=== PATIENT | male | born 1945 | race Caucasian/White ===

== ENCOUNTER → 2017-11-13 | Outpatient (REF) | payer MEDICARE | END | disposition home or self-care (01) | LOC: RT 13:33 | PROVIDERS: ATTEND Internal Medicine | DX: R05 Cough (principal); R06.00 Dyspnea, unspecified ==

== ENCOUNTER 2020-07-11 09:03 | Inpatient (IN) | payer MEDICARE, OTHER ==
[~2020-07-11] VITALS: Ht 188 cm; Wt 133.0 kg
--- NOTE | 2020-07-11 09:04 | NUR ---
TO ROOM FOR BEDSIDE TRIAGE
--- NOTE | 2020-07-11 09:10 | NUR ---
PT ASSISTED TO ROOM VIA W/C
[2020-07-11 10:06] LABS: HEMATOCRIT 38.9 % (39.0-50.0); HEMOGLOBIN 11.9 g/dl (14.0-18.0); IMMATURE GRANULOCYTES 0.6 % (0.0-5.0); MEAN CELL VOLUME 104.6 fL CALC (80.0-100.0); MEAN CORPUSCULAR HGB CONC 30.6 g/dL CAL (32.0-36.0); NEUT# 4.93 thou/uL (1.82-7.42); RED BLOOD COUNT 3.72 mill/uL (4.70-6.10); RED CELL DISTRI WIDTH 16.7 % (11.5-15.5)
[2020-07-11 10:23] LABS: ALBUMIN 3.8 g/dL (3.2-5.0); ALKALINE PHOSPHATASE 107 u/l (38-126); BILIRUBIN, TOTAL 0.7 mg/dL (0.0-1.4); BUN 22 mg/dL (8-23); BUN/CREATININE RATIO 20 (12-20 (CALC)); CARBON DIOXIDE 20 mmol/l (22-30); CHLORIDE 110 mmol/l (95-108); CREATININE 1.1 mg/dL (0.7-1.3); GFR > 60 ML/MIN (>=60 (CALC)); GFR FOR AFR.AMER. > 60 ML/MIN (>=60 (CALC)); LIPASE 74 u/l (23-300); SGOT/AST 26 u/l (19-48); SODIUM 138 mmol/l (137-146); TOTAL PROTEIN 7.6 g/dL (6.3-8.2)
--- NOTE | 2020-07-11 10:26 | NUR ---
PT RECIEVED ASPIRIN THAT WAS ORDERED AND PLAN OF CARE DISCUSSED. PT ARRIVED WITH SOB EARLIER STATING THAT IT IS CHRONIC B/C OF HIS COPD. THAT IT GOT WORSE TODAY. PT HAS LOW SPO2 UPON ARRIVAL THAT RANGED FROM 85-90%. PT WAS PLACED ON 3 L OF O2 AND IT BROUGHT O2 LEVELS TO 90-95%. MD WAS NOTIFED. TREATMENTS COMPLETED AND AWAITING FURTHER ORDERS
[2020-07-11 10:27] LABS: ANION GAP 13 (6-22 (CALC)); POTASSIUM 5.2 mmol/l (3.5-5.1)
[2020-07-11 10:35] LABS: MYOGLOBIN 54 ng/mL (0 - 121)
--- NOTE | 2020-07-11 11:18 | NUR ---
PT LEFT BY EMS TO [facility] FOR [facility]
[2020-07-11 11:28] LABS: URINE BILIRUBIN - DIPSTICK NEGATIVE (NEGATIVE); URINE BLOOD DIPSTICK MODERATE (NEGATIVE); URINE COLOR YELLOW; URINE GLUCOSE - DIPSTICK 100 mg/dL (NEGATIVE); URINE KETONE TRACE mg/dL (NEGATIVE); URINE LEUK ESTERASE NEGATIVE (NEGATIVE); URINE PH 5.5 (4.5-8.0); URINE PROTEIN - DIPSTICK >=300 mg/dL (NEG-TRACE); URINE SPECIFIC GRAVITY 1.025; URINE UROBILINOGEN - DIPSTICK 0.2 E.U./dL (0.2)
[2020-07-11 11:29] LABS: URINE NITRITE - DIPSTICK NEGATIVE (Negative)
[2020-07-11 11:42] LABS: URINE RBC 0-2 RBC/hpf (0-5); URINE SQUAMOUS EPITHELIAL CELL FEW EPI/hpf (0-FEW)
--- NOTE | 2020-07-11 12:48 | NUR ---
PT CONTINUES TO BE GONE TO CT IN [facility]
--- NOTE | 2020-07-11 15:04 | NUR ---
PT ARRIVED BY [facility] FROM [facility]. PT AOX4. DENIES ANY NEEDS. REQUESTED TO SIT IN CHAIR. PLAN OF CARE UPDATED
--- NOTE | 2020-07-11 16:20 | NUR ---
PT NOTIFIED OF PENDING ADMISSION, JUST WAITING ON ROOM #
--- NOTE | 2020-07-11 17:01 | NUR ---
GAVE REPORT TO OLEKSANDR
--- NOTE | 2020-07-11 17:10 | NUR ---
PT TRANPORTED TO MED SURG STABLE AND IN NO DISTRESS. CARE ASSUMED TO OLEKSANDR
[2020-07-11 17:16] VITALS: BP 192/88
--- NOTE | 2020-07-11 17:36 | NUR ---
PT ARRIVED VIA STRETCEHR WITH SPOUXE IN THE ROOM
--- NOTE | 2020-07-11 17:45 | NUR ---
ASSESSMENT IS COMPLETED: IV SITE IS FREE FROM REDNESS OR EDEMA. HR IS REG,PULSES ARE STRONG X4, ABD IS SOFT WITH ACTIV EBS. BREATH SOUNDS ARE CLEAR,BILATERALLY, TELE MONITOR IN PLACE.
[2020-07-11 19:00] VITALS: BP 166/89
--- NOTE | 2020-07-11 20:00 | NUR ---
PATIENT RESTING IN BED AT THIS TIME POSITIONED ON LEFT SIDE WITH EYES CLOSED. RESPS ARE EVEN AND UNLABORED. O2 VIA NASAL CANNULA IN PLACE AT 2LPM. SALINE LOCK TO RAC IS INTACT. TELE MONITOR IN PLACE-LAST READING WAS SR-75. CALL LIGHT IN REACH. WILL CONT TO MONITOR.
--- NOTE | 2020-07-11 21:30 | NUR ---
PATIENT RESTING IN BED AT THIS TIME WITH O2 VIA NASAL CANNULA IN PLACE. AWAKE ALERT AND ORIENTEDX3. PATIENT WITH NO COMPLAINTS AT THIS TIME. VOIDING QS CLEAR YELLOW URINE IN URINAL AT BEDSIDE. TELE MONITOR IN PLACE. SALINE LOCK TO RAC INTACT AND FLUSHES FREELY WITH GOOD BLOOD RETURN.ACCU-CHECK TONIGHT WAS 225. SAFETY PRECAUTIONS REINFORCED. CALL LIGHT IN REACH. WILL CONT TOO MONITOR.
[2020-07-12] VITALS: BP 154/65
--- NOTE | 2020-07-12 02:11 | NUR ---
PATIENT APPEARS SLEEPING AT THIS TIME WITH HOB ELEVATED O2 VIA NASAL CANNULA IN PLACE. EYES ARE CLOSED. RESPS ARE EVEN AND UNLABORED. TELE MONITOR IN PLACE. CALL LIGHT IN REACH. WILL CONT TO MONITOR.
[2020-07-12 04:00] VITALS: BP 167/76
--- NOTE | 2020-07-12 04:48 | NUR ---
PATIENT RESTING IN BED AT THIS TIME-APPEARS SLEEPING WITH O2 IN PLACE. RESPS ARE EVEN AND UNLABORED. TELE MONITOR IN PLACE. LAST READING WAS SR-74 WITH PVC'S. SALINE LOCK TO RAC INTACT. CALL LIGHT IN REACH. WILL CONT TO MONITOR.
[2020-07-12 06:20] LABS: HEMATOCRIT 39.7 % (39.0-50.0); HEMOGLOBIN 12.1 g/dl (14.0-18.0); MEAN CORPUSCULAR HGB CONC 30.5 g/dL CAL (32.0-36.0); RED BLOOD COUNT 3.78 mill/uL (4.70-6.10); RED CELL DISTRI WIDTH 16.4 % (11.5-15.5)
[2020-07-12 06:53] LABS: BUN 19 mg/dL (8-23); BUN/CREATININE RATIO 19 (12-20 (CALC)); CALCULATED LDLCHOLESTEROL 51 mg/dL (62-129 (CALC)); CARBON DIOXIDE 23 mmol/l (22-30); CHLORIDE 109 mmol/l (95-108); CHOLESTEROL HDL RATIO 2.1 (<4.4 (CALC)); GFR > 60 ML/MIN (>=60 (CALC)); GFR FOR AFR.AMER. > 60 ML/MIN (>=60 (CALC)); HDL CHOLESTEROL 55 mg/dL (>=40); SODIUM 139 mmol/l (137-146); TOTAL CHOLESTEROL 118 mg/dl (0-199); TOTAL TRIGLYCERIDES 56 mg/dl (30-149); VLDL CHOLESTROL 11 mg/dl (0-38 (CALC))
[2020-07-12 06:57] LABS: ANION GAP 12 (6-22 (CALC)); MAGNESIUM 1.8 mg/dL (1.6-2.3); POTASSIUM 5.3 mmol/l (3.5-5.1)
--- NOTE | 2020-07-12 07:00 | NUR ---
RECIEVED REPORT FROM KRISTIN MCCALL
[2020-07-12 07:47] VITALS: BP 190/84
--- NOTE | 2020-07-12 07:47 | NUR ---
PT RESTING IN SEMI FOWLERS POSITION. PT IS A/O X3. ASSESSMENT AND VITALS COMPLETED. BP 190/84, HR 83, O2 95% ON 3L NC. RESPIRATIONS ARE EVEN AND UNLABORED WITH NO DISTRESS NOTED. LUNG SOUNDS ARE CLEAR. HEART RHYTHM IS NORMAL WITH TELE IN PLACE, SR PER ER MONITORING. BOWEL SOUNDS ARE ACTIVE. #20G IN RAC FLUSHED, SITE APPEARS HEALTHY AND PATENT. DISCOLORATION NOTED TO BLE. PT DENIES OF ANY PAINS OR DISCOMFORTS AT THIS TIME. ALL SAFETY PRECAUTIONS ARE IN PLACE WITH CALL LIGHT IN REACH. ENCOURAGED PT TO CALL FOR ASSISTANCE. PT VERBLAIZED UNDERSTANDING. WILL CONTINUE TO MONITOR.
--- NOTE | 2020-07-12 07:50 | NUR ---
PT UNABLE TO REMEMBER MEDICATIONS. PT STATES HE HAS A MEDIATION LIST AT HOME. PHARMACY CONTACTED ABOUT CONSULT FOR MED REC. FADY,ANRP NOTIFIED OF .
[2020-07-12] MEDS ORDERED: ACETAMIN500 M2 PO (08:57)
[2020-07-12] MEDS ORDERED: LASIX 40 MG TAB40 MG PO (08:58)
[2020-07-12] MEDS ORDERED: ALLOPURINOL100 MG PO (08:58)
[2020-07-12] MEDS ORDERED: AMLODIPINE BESY10 MG PO (08:58)
[2020-07-12] MEDS ORDERED: GLIPIZIDE5 M2 PO (08:59)
[2020-07-12] MEDS ORDERED: METOPROL TAR100 MG PO (09:00)
[2020-07-12] MEDS ORDERED: METFORMIN HCL1000 MG PO (09:00)
--- NOTE | 2020-07-12 09:11 | NUR ---
DR TERRELL AT BEDSIDE
[2020-07-12] MEDS ORDERED: LOSARTAN POTASS50 MG PO (09:49)
[2020-07-12] MEDS ORDERED: PRAVASTATIN40 MG PO (09:49)
[2020-07-12] MEDS ORDERED: CLOPIDOGREL75 MG PO (09:49)
[2020-07-12] MEDS ORDERED: DOCUSATE SO1 PO (09:52)
--- NOTE | 2020-07-12 10:00 | NUR ---
MARTITA ANRP AT BEDSIDE
[2020-07-12 10:33] VITALS: BP 157/79
--- NOTE | 2020-07-12 10:33 | NUR ---
REASSESSMENT OF BP REUSLTING IN 157/79, HR 77. SCHEDULED BP MEDICATIONS ADMINISTERED. PT TOELRATED WELL.
[2020-07-12] MEDS ORDERED: XARELTO15 MG PO (11:54)
--- NOTE | 2020-07-12 12:15 | NUR ---
PT SITTING UP ON SIDE OF BED WATCHING TV. RESPIRATIONS ARE EVEN AND UNLABORED WITH NO DISRTESS NOTED ON 3L NC.TELE MONITORING IN PLACE. #20G IN RAC REMAINS HEALTHY AND PATENT. PT DENIES OF ANY PAINS OR DISCOMFORTS AT THIS TIME. ALL SAFETY PRECAUTIONS ARE IN PLACE WITH CALL LIGHT IN REACH. WILL CONTINUE TO MONITOR.
--- NOTE | 2020-07-12 12:40 | NUR ---
DR CORTEZ AT BEDSIDE
--- NOTE | 2020-07-12 13:17 | NUR ---
VISITOR AT BEDSIDE
[2020-07-12 14:53] VITALS: BP 142/70
--- NOTE | 2020-07-12 15:09 | NUR ---
BENCH PRESS OPERATOR NOTIFIED BY KRISTIN BRIONES IN ER THAT PT IS RUNNING AFIB ON TELE. EKG ORDERED. RESPIRATORY CALLED.
--- NOTE | 2020-07-12 15:25 | NUR ---
RESPIRATORY AT BEDSIDE
--- NOTE | 2020-07-12 15:35 | NUR ---
DIXON SHRESTHA NOTIFIED OF EKG RESULTS. NO NEW ORDERS OBTAINED.
--- NOTE | 2020-07-12 16:58 | NUR ---
PT SITTING UP IN CHAIR WATCHING TV. REPSIRATIONS ARE EVEN AND UNLABORED WITH NO DISTRESS NOTED ON 3L NC. #20G RAC REMAINS HEALTHY AND PATENT. TELE MONITORING IN PLACE.ACCUCHECK REUSLTING IN 135. NO COVERAGE NEEDED. METFORMIN HELD DUE TO CT WITH CONTRAST WITHIN 48HRS. PT DENIES OF ANY PAINS OR DISCOMFORTS AT THIS TIME. ALL SAFETY PRECAUTIONS ARE IN PLACE WITH CALL LIGHT IN REACH. WILL CONTINUE TO MONITOR.
--- NOTE | 2020-07-12 17:40 | NUR ---
CLINICAL SUPPORT NURSE INFORMED FROM IRAIS IN ER THAT PT HAVE CONVERTED BACK INTO SR.
[2020-07-12 19:00] VITALS: BP 159/76
--- NOTE | 2020-07-12 20:00 | NUR ---
PATIENT SITTING UP IN BED AT THIS TIME WATCHING TV WITH O2 VIA NASAL CNNULA IN PLACE.-O2 SAT IS 92F AT THIS TIME. AWAKE ALERT AND ORIENTEDX3. PATIENT WITH NO COMPLAINTS AT THIS TIME. TELE MONITOR IN PLACE AND READING SR-81 AT THIS TIME. SALINE LOCK TO RIGHT AC INTACT AND HEALTHY AT THIS TIME. LUNGS ARE CLEAR. ABD IS LARGE WITH ACTIVE BS. NO PERIPHERAL EDEMA AT THIS TIME. PULSES ARE PALPABLE. ACCU-CHECK TONIGHT IS 93-NO COVERAGE NEEDED AND HS SNACK PROVIDED. INSTRUCTED PATIENT REGUARDING FLUID RESTRICTION AND DIFFERENT MEASUREMENT SIZES. SAFETY PRECAUTIONS REINFORCED. CALL LIGHT IN REACH. WILL CONT TO MONITOR.
[2020-07-13] VITALS: BP 174/72
--- NOTE | 2020-07-13 | NUR ---
PATIENT RESTING IN BED-O2 VIA NASAL CANNULA IN PLACE. TELE MONITOR IN PLACE. CONT TO VOID IN URINAL FOR STRICT I&O. SALINE LOCK TO RAC INTACT. CALL LIGHT IN REACH. WILL CONT TO MONITOR.
[2020-07-13 04:00] VITALS: BP 151/69
--- NOTE | 2020-07-13 04:10 | NUR ---
PATIENT RESTING IN BED POSITIONED ON LEFT SIDE WITH EYES CLOSED. O2 VIA NASAL CANNULA IN PLACE. TELE MONITOR IN PLACE. CALL LIGHT IN REACH. WILL CONT TO MONITOR.
[2020-07-13 06:03] LABS: MEAN CELL VOLUME 104.7 fL CALC (80.0-100.0); MEAN CORPUSCULAR HGB CONC 30.6 g/dL CAL (32.0-36.0); RED BLOOD COUNT 3.44 mill/uL (4.70-6.10); RED CELL DISTRI WIDTH 16.4 % (11.5-15.5)
[2020-07-13 06:32] LABS: ALBUMIN 3.2 g/dL (3.2-5.0); CREATININE 1.4 mg/dL (0.7-1.3); MAGNESIUM 1.9 mg/dL (1.6-2.3)
[2020-07-13 06:35] LABS: POTASSIUM 5.4 mmol/l (3.5-5.1)
--- NOTE | 2020-07-13 07:00 | NUR ---
RECIEVED REPORT FROM KRISTIN MCCALL
[2020-07-13 07:39] VITALS: BP 169/67
--- NOTE | 2020-07-13 07:39 | NUR ---
PT SITTING UP IN CHAIR UPON ENTRING ROOM. INTRODUCED SELF TO PT AND DISCUSSED POC. PT IS A/O X3. ASSESSMENT AND VITALS COMPLETED. BP 169/67, HR 78, O2 97% ON 2L NC. RESPIRATIONS ARE EVEN AND UNLABORED. LUNG SOUNDS ARE DIMINISHED UPON ASCULTATION. HEART RHYTHM NORMAL WITH TELE IN PLACE. BOWEL SOUNDS ARE ACTIVE. , LAST REPORTED BM 07/10/20. RADIAL PULSES STRONG. PEDAL PULSES WEAK. #20G IN RAC FLUSHED, SITE APPEARS HEALTHY AND PATENT. DISCOLORATION NOTED TO BLE. OTHERWISE, SKIN INTACT. PT DENIES OF ANY PAINS OR DISCOMFORTS AT THIS TIME. ALL SAFEYTY PRECAUTIONS ARE IN PLACE WITH CALL LIGHT IN REACH. WILL CONTINUE TO MONITOR.
--- NOTE | 2020-07-13 09:10 | NUR ---
DR TERRELL AT BEDSIDE
--- NOTE | 2020-07-13 09:45 | NUR ---
RT AT BEDSIDE TO PERFORM WALK TEST
--- NOTE | 2020-07-13 09:47 | NUR ---
6 MIN WALK PREFORMED. PT QUALIFIES FOR HOME O2. SPO2 ON RA AT REST INITIAL= 90%. 1 MIN EXERTION = 82. REPLACED C 2LPM NC = 89. RESTING SPO2 ON 2 LPM NC= 93.
[2020-07-13 11:03] VITALS: BP 156/78
--- NOTE | 2020-07-13 11:03 | NUR ---
REASSESSMENT OF BP REUSLTING IN 156/78, HR 81.
--- NOTE | 2020-07-13 11:40 | NUR ---
PT SITTING UP IN CHAIR. RESPIRATIONS ARE EVEN AND UNLABORED ON 2L NC. #20G IN RAC REMAINS HEALTHY AND PATENT. TELE MONITORING IN PLACE. PT DENIES OF ANY PAINS OR DISCOMFORTS AT THIS TIME. ALL SAFETY PRECAUTIONS ARE IN PLACE WITH CALL LIGHT IN REACH. WILL CONTINUE TO MONITOR.
--- NOTE | 2020-07-13 14:08 | NUR ---
PT C/O OF CRAMPING IN HANDS. TYLENOL OFFERED. PT REQUEST FOR SOMETHING ELSE DUE TO TYLENOL " NOT HELPING SO MUCH." FADY,ANRP NOTIFIED. NO NEW ORDERS OBTAINED AT THIS TIME.
--- NOTE | 2020-07-13 15:17 | NUR ---
GLUCOSE AND SYRUP WEIGHER CALLED TO ROOM DUE TO PT HAVING A NOSE BLEED. WARM WASH CLOTH PROVIDED. LARGE EPISTAXIS CLOT NOTED. O2 PLACE ON HUMIDIFICATION. MARQUISE SHRESTHA NOTIFIED. PT CONTINUES TO C/O OF HANDS CRAMPING. MARQUISE ERAZO PREVIOUSLY NOTIFIED. NO NEW ORDERS. TYLENOL ADMINISTERED. PT TOELRATED WELL. PT DENIES OF ANY ADDITIONAL NEEDS AT THIS TIME. ALL SAFETY PRECAUTIONS ARE IN PLACE WITH CALL LIGHT IN REACH. WILL CONTINUE TO MONITOR.
[2020-07-13 15:39] VITALS: BP 137/68
--- NOTE | 2020-07-13 15:58 | NUR ---
PT SITTING UP YI CHAIR WITH VISITOR AT BEDSIDE. RESPIRATIONS ARE EVEN AND UNLABORED ON 2L NC. #20G RAC REMAINS IN PLACE, SITE APPEARS HEALTHY AND PATENT. PT STILL HOLDING TISSUE TO NOSE. PT DENIES OF ANY NEEDS AT THIS TIME. ALL SAFETY PRECAUTIONS ARE IN PLACE WITH CALL LIGHT IN REACH. ALL SAFTEY PRECAUTIONS ARE IN PLACE WITH CALL LIGHT IN REACH. WILL CONTINUE TO MONITOR.
--- NOTE | 2020-07-13 17:05 | NUR ---
PT NOSE CONTINUES TO BLEED. MARQUISE SHRESTHA NOTIFIED.NOSE CLAM PROVIDED. HELD TILTED BACK. OXYGEN PLACED ON MOUTH. PT INSTRUCTED TO MOUTH BREATH. PT VERBALIZED UNDERSTANDING.
--- NOTE | 2020-07-13 17:40 | NUR ---
NOSE CLAMP REMOVED, BLEEDING STOPPED. O2 REAPPLIED TO NOSE. REPISRATIONS ARE EVEN AND UNLABORED. ACCUCHECK 111, NO COVERAGE NEEDED. METFORMIN ADMINISTERED.NO BM NOTED, PT REFUSES ANYTHING TO ASSIST. PT DENIES OF ANY NEEDS AT THIS TIME. PT INSTRUCTED TO CALL FOR BLEEDING STARTS AGAIN. PT VERBALIZED UNDERSTANDING.
[2020-07-13 19:00] VITALS: BP 159/76
--- NOTE | 2020-07-13 20:52 | NUR ---
PATIENT DECLINED BEDTIME SNACK
--- NOTE | 2020-07-13 21:06 | NUR ---
PATIENT WATCHING TV IN BED. RESP EVEN AND UNLABORED, 3L NC. ALERT AND ORIENTED X 4. FALL AND SAFTEY PRECAUTIONS IN PLACE. NO S/S OF DISTRESS NOTED. IV SALINE LOCKED. STATE PATIENT HE HAS NOT HAD ANY BLEEDING FROM HIS NOSE SINCE IT STOPPED. PLAN OF CARE DISCUSSED. PATIENT INFORMED TO CALL WITH ANY QUESTION OR CONCERNS.
--- NOTE | 2020-07-14 00:38 | NUR ---
PATIENT RESTING WITH EYES CLOSED. RESP EVEN AND UNLABORED. NO S/S OF DISTRESS NOTED. FALL AND SAFTEY PRECAUTIONS IN PLACE.
--- NOTE | 2020-07-14 03:57 | NUR ---
PATIENT RESTING WITH EYES CLOSED. RESP EVEN AND UNLABORED. NO S/S OF DISTRESS NOTED. FALL AND SAFTEY PRECAUTIONS IN PLACE.
[2020-07-14 04:00] VITALS: BP 152/74
[2020-07-14 04:52] LABS: HEMATOCRIT 34.5 % (39.0-50.0); HEMOGLOBIN 10.5 g/dl (14.0-18.0); MEAN CELL VOLUME 104.5 fL CALC (80.0-100.0); MEAN CORPUSCULAR HGB 31.8 pG CALC (26.0-32.0); MEAN CORPUSCULAR HGB CONC 30.4 g/dL CAL (32.0-36.0); RED BLOOD COUNT 3.3 mill/uL (4.70-6.10); RED CELL DISTRI WIDTH 16.2 % (11.5-15.5)
[2020-07-14 05:09] LABS: ANION GAP 11 (6-22 (CALC)); BUN 30 mg/dL (8-23); BUN/CREATININE RATIO 24 (12-20 (CALC)); CARBON DIOXIDE 26 mmol/l (22-30); CHLORIDE 107 mmol/l (95-108); CREATININE 1.2 mg/dL (0.7-1.3); GFR 59 ML/MIN (>=60 (CALC)); GFR FOR AFR.AMER. > 60 ML/MIN (>=60 (CALC)); MAGNESIUM 1.7 mg/dL (1.6-2.3); SODIUM 138 mmol/l (137-146)
[2020-07-14 07:30] VITALS: BP 140/79
--- NOTE | 2020-07-14 07:30 | NUR ---
ASSESSMENT IS COMPLETED: IV SITE IS FREE FROM REDNESS OR EDEMA. HR IS REG,PULSES ARE STRONG X4, ABD IS SOFT WITH ACTIVE BS. TELE MONITOR IN PLACE. PT IS USING O2 @2 LITERS. IS C/O NOSE BLEED . CONTINUE TO OSBERVE AND MONITOR.
--- NOTE | 2020-07-14 09:15 | NUR ---
ICE PACK WAS PLACED ON HIS NOSE DUE TO A BLEED. PT STATED" I TOOK IT OFF AND ON.IT HELPED SOME".
--- NOTE | 2020-07-14 12:00 | NUR ---
PT IS SITTING IN THE CHAIR., NO DISTRESS NOTED. IV SITE IS FREE FROM REDNESS OR EDEMA
[2020-07-14 12:40] VITALS: BP 133/63
--- NOTE | 2020-07-14 13:05 | NUR ---
ECHO BEING PERFORMED AT BEDSIDE
[2020-07-14] MEDS ORDERED: XARELTO15 MG PO (15:53)
[2020-07-14 16:24] VITALS: BP 149/77
--- NOTE | 2020-07-14 16:30 | NUR ---
PT'S IV SITE TAKEN OUT FOR DISCHARGE. TELE MONITOR TAKEN OFF. DISCHARGE INSTRUCTIONS GIVEN . O2 @ 2LITERS WITH NC. FAMILY IN THE ROOM/.
--- NOTE | 2020-07-14 16:45 | NUR ---
Discharge instructions given. Patient verbalizes understanding of same. Discharged in stable condition via Wheelchair to Home with family. All belongings sent with pt.
== END 2020-07-14 16:37 | DRG 291 ==
LOC: ED 09:03 → ED-I 15:50 → ED 16:13 → MS2 16:14
PROVIDERS: Emergency Medicine; Internal Medicine Nephrology; Nurse Practitioner; ADMIT Internal Medicine; ATTEND Internal Medicine
DX: I13.0 Hypertensive heart and chronic kidney disease with heart failure and stage 1 through stage 4 chronic kidney disease, or unspecified chronic kidney disease (principal); I50.33 Acute on chronic diastolic (congestive) heart failure; D68.59 Other primary thrombophilia; N17.9 Acute kidney failure, unspecified; E11.22 Type 2 diabetes mellitus with diabetic chronic kidney disease; N18.31 Chronic kidney disease, stage 3a; E87.5 Hyperkalemia; D64.9 Anemia, unspecified; I44.7 Left bundle-branch block, unspecified; R80.9 Proteinuria, unspecified; I25.10 Atherosclerotic heart disease of native coronary artery without angina pectoris; J44.9 Chronic obstructive pulmonary disease, unspecified; E78.5 Hyperlipidemia, unspecified; T50.1X6A Underdosing of loop [high-ceiling] diuretics, initial encounter; Z91.128 Patient's intentional underdosing of medication regimen for other reason; Z79.01 Long term (current) use of anticoagulants; Z95.3 Presence of xenogenic heart valve; Z86.718 Personal history of other venous thrombosis and embolism; Z20.822 Contact with and (suspected) exposure to COVID-19
CPT/HCPCS: G0378; J1650; Q9967

== ENCOUNTER 2020-11-12 10:26 | Emergency (ER) | payer MEDICARE, OTHER ==
[~2020-11-12] VITALS: Ht 188 cm; Wt 130.0 kg
[~2020-11-12 10:26] MED LIST: ACETAMIN500 M2 PO; ALLOPURINOL100 MG PO; AMLODIPINE BESY10 MG PO; CLOPIDOGREL75 MG PO; DOCUSATE SO1 PO; GLIPIZIDE5 M2 PO; LASIX 40 MG TAB40 MG PO; LOSARTAN POTASS50 MG PO; METFORMIN HCL1000 MG PO; METOPROL TAR100 MG PO; PRAVASTATIN40 MG PO; XARELTO15 MG PO
[2020-11-12 11:11] LABS: HEMATOCRIT 36.6 % (39.0-50.0); HEMOGLOBIN 11.8 g/dl (14.0-18.0); IMMATURE GRANULOCYTES 0.5 % (0.0-5.0); MEAN CELL VOLUME 105.2 fL CALC (80.0-100.0); MEAN CORPUSCULAR HGB 33.9 pG CALC (26.0-32.0); MEAN CORPUSCULAR HGB CONC 32.2 g/dL CAL (32.0-36.0); NEUT# 6.14 thou/uL (1.82-7.42); RED BLOOD COUNT 3.48 mill/uL (4.70-6.10); RED CELL DISTRI WIDTH 18.3 % (11.5-15.5)
[2020-11-12] MEDS ORDERED: ASPIRIN81 MG PO (11:19)
[2020-11-12] MEDS ORDERED: GLIPIZIDE ER5 MG PO (11:20)
[2020-11-12 11:27] LABS: ALBUMIN 3.9 g/dL (3.2-5.0); CREATININE 1.6 mg/dL (0.7-1.3); TOTAL PROTEIN 7.5 g/dL (6.3-8.2)
[2020-11-12 11:29] LABS: BILIRUBIN, TOTAL 1.2 mg/dL (0.0-1.4); POTASSIUM 5.6 mmol/l (3.5-5.1)
[2020-11-12 13:36] VITALS: BP 121/70
== END 2020-11-12 13:40 | disposition short-term general hospital (02) ==
LOC: ED 10:26
PROVIDERS: Family Medicine
DX: I21.4 Non-ST elevation (NSTEMI) myocardial infarction (principal); E11.9 Type 2 diabetes mellitus without complications; I10 Essential (primary) hypertension; I44.7 Left bundle-branch block, unspecified; M19.90 Unspecified osteoarthritis, unspecified site; Z95.3 Presence of xenogenic heart valve; Z79.84 Long term (current) use of oral hypoglycemic drugs; Z20.822 Contact with and (suspected) exposure to COVID-19
CPT/HCPCS: J1644; Q9967

== ENCOUNTER 2021-05-28 16:57 | Emergency (ER) | payer MEDICARE, OTHER ==
[~2021-05-28] VITALS: Ht 188 cm; Wt 123.0 kg
[~2021-05-28 16:57] MED LIST changes: +ASPIRIN81 MG PO; +GLIPIZIDE ER5 MG PO
[2021-05-28 18:39] LABS: HEMOGLOBIN 10.1 g/dl (14.0-18.0); IMMATURE GRANULOCYTES 0.6 % (0.0-5.0); MEAN CELL VOLUME 101.6 fL CALC (80.0-100.0); MEAN CORPUSCULAR HGB 31.7 pG CALC (26.0-32.0); MEAN CORPUSCULAR HGB CONC 31.2 g/dL CAL (32.0-36.0); NEUT# 3.28 thou/uL (1.82-7.42); RED BLOOD COUNT 3.19 mill/uL (4.70-6.10); RED CELL DISTRI WIDTH 20.4 % (11.5-15.5)
[2021-05-28 18:41] LABS: HEMATOCRIT 32.4 % (39.0-50.0)
[2021-05-28 19:04] LABS: INTERNATIONAL NORMALIZED RATIO 2.9 RATIO (0.7-1.3); PROTHROMBIN TIME 28.8 SECONDS (9.0-12.5)
[2021-05-28 19:05] LABS: ALBUMIN 3.7 g/dL (3.2-5.0); BILIRUBIN, TOTAL 0.5 mg/dL (0.0-1.4); CREATININE 1.5 mg/dL (0.7-1.3)
[2021-05-28 19:07] LABS: POTASSIUM 5.2 mmol/l (3.5-5.1)
[2021-05-28 23:14] VITALS: BP 189/89
== END 2021-05-28 23:24 | disposition short-term general hospital (02) ==
LOC: ED 16:57
PROVIDERS: Nurse Practitioner
DX: K62.5 Hemorrhage of anus and rectum (principal); R93.421 Abnormal radiologic findings on diagnostic imaging of right kidney; I11.0 Hypertensive heart disease with heart failure; I50.9 Heart failure, unspecified; I25.10 Atherosclerotic heart disease of native coronary artery without angina pectoris; I25.2 Old myocardial infarction; D68.59 Other primary thrombophilia; Z86.718 Personal history of other venous thrombosis and embolism; Z95.3 Presence of xenogenic heart valve; Z79.01 Long term (current) use of anticoagulants
CPT/HCPCS: S0164

== ENCOUNTER 2022-08-09 07:49 | Inpatient (IN) | payer MEDICARE, OTHER ==
[~2022-08-09] VITALS: Ht 188 cm; Wt 126.0 kg
[2022-08-09] VITALS (12 sets, daily range): BP systolic 151–201; BP diastolic 59–78
[~2022-08-09 07:49] MED LIST changes: +TRAMADOL HYDROC50 M1 PO
[2022-08-09] MEDS ORDERED: WARFARIN SODIUM5 MG PO (08:00)
[2022-08-09] MEDS ORDERED: CARVEDILOL25 MG PO (08:00)
[2022-08-09 08:24] LABS: BASO% 0.7 % (0-3); EOS% 2.6 % (0-8); HEMATOCRIT 32.5 % (39.0-50.0); HEMOGLOBIN 10.4 g/dl (14.0-18.0); IMMATURE GRANULOCYTES 1.5 % (0.0-5.0); LYMPH% 9.2 % (15-41); MEAN CELL VOLUME 106.6 fL CALC (80.0-100.0); MEAN CORPUSCULAR HGB 34.1 pG CALC (26.0-32.0); MONO% 11.2 % (2-13); NEUT# 4.53 thou/uL (1.82-7.42); NEUT% 74.8 % (42-76); RED BLOOD COUNT 3.05 mill/uL (4.70-6.10); RED CELL DISTRI WIDTH 17.8 % (11.5-15.5)
[2022-08-09 08:40] LABS: ALBUMIN 3.1 g/dL (3.2-5.0); ALKALINE PHOSPHATASE 81 u/l (38-126); BUN 24 mg/dL (8-23); BUN/CREATININE RATIO 20 (12-20 (CALC)); CHLORIDE 113 mmol/l (95-108); CREATININE 1.2 mg/dL (0.7-1.3); GFR FOR AFR.AMER. > 60 ML/MIN (>=60 (CALC)); GFR OTHER RACES 59 ML/MIN (>=60 (CALC)); SGOT/AST 29 u/l (19-48); TOTAL PROTEIN 6.1 g/dL (6.3-8.2)
[2022-08-09 08:41] LABS: ANION GAP 14 (6-22 (CALC)); BILIRUBIN, TOTAL 0.8 mg/dL (0.2-1.3); CARBON DIOXIDE 21 mmol/l (22-30); POTASSIUM 5.4 mmol/l (3.5-5.1); SODIUM 143 mmol/l (137-146)
[2022-08-09 08:47] LABS: PROTHROMBIN TIME 47.8 SECONDS (9.0-12.5)
[2022-08-09 08:48] LABS: INTERNATIONAL NORMALIZED RATIO 5.2 RATIO (0.7-1.3)
[2022-08-10] VITALS (8 sets, daily range): BP systolic 118–188; BP diastolic 50–77
[2022-08-10 05:27] LABS: EOS% 4.5 % (0-8); HEMATOCRIT 34.9 % (39.0-50.0); HEMOGLOBIN 11.1 g/dl (14.0-18.0); IMMATURE GRANULOCYTES 0.9 % (0.0-5.0); LYMPH% 14.2 % (15-41); MEAN CELL VOLUME 105.8 fL CALC (80.0-100.0); MEAN CORPUSCULAR HGB 33.6 pG CALC (26.0-32.0); MEAN CORPUSCULAR HGB CONC 31.8 g/dL CAL (32.0-36.0); MONO% 13.1 % (2-13); NEUT# 3.83 thou/uL (1.82-7.42); NEUT% 66.3 % (42-76); RED BLOOD COUNT 3.3 mill/uL (4.70-6.10); RED CELL DISTRI WIDTH 17.8 % (11.5-15.5)
[2022-08-10 05:43] LABS: ALBUMIN 3.2 g/dL (3.2-5.0); ALKALINE PHOSPHATASE 84 u/l (38-126); ANION GAP 12 (6-22 (CALC)); BUN 22 mg/dL (8-23); BUN/CREATININE RATIO 21 (12-20 (CALC)); CARBON DIOXIDE 23 mmol/l (22-30); CHLORIDE 110 mmol/l (95-108); GFR FOR AFR.AMER. > 60 ML/MIN (>=60 (CALC)); GFR OTHER RACES > 60 ML/MIN (>=60 (CALC)); MAGNESIUM 1.3 mg/dL (1.6-2.3); POTASSIUM 4.4 mmol/l (3.5-5.1); SGOT/AST 24 u/l (19-48); SODIUM 142 mmol/l (137-146); TOTAL PROTEIN 6.4 g/dL (6.3-8.2)
[2022-08-10 05:45] LABS: INTERNATIONAL NORMALIZED RATIO 3.5 RATIO (0.7-1.3); PROTHROMBIN TIME 33.2 SECONDS (9.0-12.5)
[2022-08-10 11:15] LABS: BASO% 1.2 % (0-3); EOS% 3.9 % (0-8); HEMATOCRIT 33.9 % (39.0-50.0); HEMOGLOBIN 10.8 g/dl (14.0-18.0); IMMATURE GRANULOCYTES 0.9 % (0.0-5.0); LYMPH% 10.5 % (15-41); MEAN CELL VOLUME 105.6 fL CALC (80.0-100.0); MEAN CORPUSCULAR HGB 33.6 pG CALC (26.0-32.0); MEAN CORPUSCULAR HGB CONC 31.9 g/dL CAL (32.0-36.0); MONO% 12.8 % (2-13); NEUT# 3.96 thou/uL (1.82-7.42); NEUT% 70.7 % (42-76); RED BLOOD COUNT 3.21 mill/uL (4.70-6.10); RED CELL DISTRI WIDTH 17.7 % (11.5-15.5)
[2022-08-11 01:06] VITALS: BP 171/50
[2022-08-11 04:58] VITALS: BP 171/70
[2022-08-11 05:25] LABS: BASO% 1.2 % (0-3); EOS% 5.3 % (0-8); HEMATOCRIT 34.4 % (39.0-50.0); IMMATURE GRANULOCYTES 0.7 % (0.0-5.0); LYMPH% 15.2 % (15-41); MEAN CELL VOLUME 108.2 fL CALC (80.0-100.0); MEAN CORPUSCULAR HGB 34.6 pG CALC (26.0-32.0); MONO% 12.9 % (2-13); NEUT# 3.66 thou/uL (1.82-7.42); NEUT% 64.7 % (42-76); RED BLOOD COUNT 3.18 mill/uL (4.70-6.10); RED CELL DISTRI WIDTH 17.8 % (11.5-15.5)
[2022-08-11 05:48] LABS: ALBUMIN 3.1 g/dL (3.2-5.0); ALKALINE PHOSPHATASE 82 u/l (38-126); ANION GAP 11 (6-22 (CALC)); BILIRUBIN, TOTAL 0.8 mg/dL (0.2-1.3); BUN 22 mg/dL (8-23); BUN/CREATININE RATIO 20 (12-20 (CALC)); CARBON DIOXIDE 26 mmol/l (22-30); CHLORIDE 107 mmol/l (95-108); CREATININE 1.1 mg/dL (0.7-1.3); GFR FOR AFR.AMER. > 60 ML/MIN (>=60 (CALC)); GFR OTHER RACES > 60 ML/MIN (>=60 (CALC)); POTASSIUM 4.1 mmol/l (3.5-5.1); SGOT/AST 20 u/l (19-48); SODIUM 140 mmol/l (137-146); TOTAL PROTEIN 6.2 g/dL (6.3-8.2)
[2022-08-11 08:14] VITALS: BP 147/66
[2022-08-11 09:54] LABS: INTERNATIONAL NORMALIZED RATIO 2.4 RATIO (0.7-1.3); PROTHROMBIN TIME 22.9 SECONDS (9.0-12.5)
[2022-08-11 16:08] VITALS: BP 171/75
[2022-08-11 17:46] VITALS: BP 141/57
[2022-08-11 18:57] VITALS: BP 147/65
[2022-08-12 00:30] VITALS: BP 173/74
[2022-08-12 04:05] VITALS: BP 179/77
[2022-08-12] MEDS ORDERED: NORVASC PO (04:59)
[2022-08-12] MEDS ORDERED: COZAAR25 MG PO (05:00)
[2022-08-12 05:09] LABS: BASO% 1.1 % (0-3); EOS% 4.7 % (0-8); HEMATOCRIT 34.7 % (39.0-50.0); HEMOGLOBIN 11.2 g/dl (14.0-18.0); MEAN CELL VOLUME 104.8 fL CALC (80.0-100.0); MEAN CORPUSCULAR HGB 33.8 pG CALC (26.0-32.0); MEAN CORPUSCULAR HGB CONC 32.3 g/dL CAL (32.0-36.0); MONO% 12.5 % (2-13); NEUT# 4.64 thou/uL (1.82-7.42); NEUT% 65.7 % (42-76); RED BLOOD COUNT 3.31 mill/uL (4.70-6.10); RED CELL DISTRI WIDTH 17.4 % (11.5-15.5)
[2022-08-12 05:19] LABS: ALBUMIN 3.4 g/dL (3.2-5.0); ALKALINE PHOSPHATASE 80 u/l (38-126); ANION GAP 13 (6-22 (CALC)); BILIRUBIN, TOTAL 0.8 mg/dL (0.2-1.3); BUN 26 mg/dL (8-23); BUN/CREATININE RATIO 21 (12-20 (CALC)); CARBON DIOXIDE 24 mmol/l (22-30); CHLORIDE 106 mmol/l (95-108); CREATININE 1.2 mg/dL (0.7-1.3); GFR FOR AFR.AMER. > 60 ML/MIN (>=60 (CALC)); GFR OTHER RACES 59 ML/MIN (>=60 (CALC)); POTASSIUM 4.4 mmol/l (3.5-5.1); SGOT/AST 22 u/l (19-48); SODIUM 139 mmol/l (137-146); TOTAL PROTEIN 6.6 g/dL (6.3-8.2)
[2022-08-12 06:30] VITALS: BP 188/80
[2022-08-12 09:30] LABS: PROTHROMBIN TIME 19.1 SECONDS (9.0-12.5)
[2022-08-12 10:35] VITALS: BP 137/57
== END 2022-08-12 12:30 | disposition home health service (06) | DRG 291 ==
LOC: ED 07:49 → MS2 09:19
PROVIDERS: Family Medicine; Internal Medicine; Nurse Practitioner Family; ADMIT Internal Medicine; ATTEND Internal Medicine
DX: I13.0 Hypertensive heart and chronic kidney disease with heart failure and stage 1 through stage 4 chronic kidney disease, or unspecified chronic kidney disease (principal); I50.23 Acute on chronic systolic (congestive) heart failure; D68.59 Other primary thrombophilia; E11.22 Type 2 diabetes mellitus with diabetic chronic kidney disease; N18.30 Chronic kidney disease, stage 3 unspecified; E11.51 Type 2 diabetes mellitus with diabetic peripheral angiopathy without gangrene; J44.9 Chronic obstructive pulmonary disease, unspecified; E78.5 Hyperlipidemia, unspecified; Z86.718 Personal history of other venous thrombosis and embolism; I25.10 Atherosclerotic heart disease of native coronary artery without angina pectoris; T50.1X6A Underdosing of loop [high-ceiling] diuretics, initial encounter; Z91.128 Patient's intentional underdosing of medication regimen for other reason; Z95.5 Presence of coronary angioplasty implant and graft; Z79.01 Long term (current) use of anticoagulants; Z79.84 Long term (current) use of oral hypoglycemic drugs; Z95.3 Presence of xenogenic heart valve; Z20.822 Contact with and (suspected) exposure to COVID-19

== ENCOUNTER 2022-12-19 14:57 | Emergency (ER) | payer MEDICARE, OTHER ==
[~2022-12-19] VITALS: Ht 188 cm; Wt 124.0 kg
[2022-12-19] VITALS (9 sets, daily range): BP systolic 145–156; BP diastolic 69–76
[~2022-12-19 14:57] MED LIST changes: +CARVEDILOL25 MG PO; +COZAAR25 MG PO; +NORVASC PO; +WARFARIN SODIUM5 MG PO
[2022-12-19 15:43] LABS: BASO% 0.9 % (0-3); EOS% 2.9 % (0-8); HEMATOCRIT 41.7 % (39.0-50.0); HEMOGLOBIN 13.4 g/dl (14.0-18.0); IMMATURE GRANULOCYTES 0.7 % (0.0-5.0); LYMPH% 14.3 % (15-41); MEAN CORPUSCULAR HGB 31.4 pG CALC (26.0-32.0); MEAN CORPUSCULAR HGB CONC 32.1 g/dL CAL (32.0-36.0); MONO% 10.5 % (2-13); NEUT# 3.92 thou/uL (1.82-7.42); NEUT% 70.7 % (42-76); RED BLOOD COUNT 4.27 mill/uL (4.70-6.10)
[2022-12-19 15:59] LABS: MEAN CELL VOLUME 97.7 fL CALC (80.0-100.0)
[2022-12-19 16:22] LABS: BILIRUBIN, TOTAL 0.7 mg/dL (0.2-1.3); CREATININE 1.5 mg/dL (0.7-1.3); TOTAL PROTEIN 7.5 g/dL (6.3-8.2)
== END 2022-12-19 18:58 | disposition home or self-care (01) ==
LOC: ED 14:57
PROVIDERS: Family Medicine
DX: E11.65 Type 2 diabetes mellitus with hyperglycemia (principal); I13.0 Hypertensive heart and chronic kidney disease with heart failure and stage 1 through stage 4 chronic kidney disease, or unspecified chronic kidney disease; E11.22 Type 2 diabetes mellitus with diabetic chronic kidney disease; N18.9 Chronic kidney disease, unspecified; I50.9 Heart failure, unspecified; J44.9 Chronic obstructive pulmonary disease, unspecified; E78.5 Hyperlipidemia, unspecified; Z95.3 Presence of xenogenic heart valve; Z79.84 Long term (current) use of oral hypoglycemic drugs

== ENCOUNTER 2023-08-28 12:53 | Observation (INO) | payer MEDICARE, OTHER ==
[~2023-08-28] VITALS: Ht 195.6 cm; Wt 122.2 kg
[2023-08-28] VITALS (10 sets, daily range): BP systolic 124–148; BP diastolic 54–70
[~2023-08-28 12:53] MED LIST changes: +CEPHALEXIN500 M1 PO; +HYDROCO/APAP1 TA9 PO; +JANTOVEN2.5 MG PO; -WARFARIN SODIUM5 MG PO
--- NOTE | 2023-08-28 12:55 | NUR ---
PATIENT TO ROOM 15 VIA EMS
[2023-08-28 13:24] LABS: BASO% 1.2 % (0-3); EOS% 2.5 % (0-8); HEMATOCRIT 36.2 % (39.0-50.0); HEMOGLOBIN 12.4 g/dl (14.0-18.0); IMMATURE GRANULOCYTES 1.4 % (0.0-5.0); LYMPH% 11.7 % (15-41); MEAN CELL VOLUME 108.4 fL CALC (80.0-100.0); MEAN CORPUSCULAR HGB 37.1 pG CALC (26.0-32.0); MEAN CORPUSCULAR HGB CONC 34.3 g/dL CAL (32.0-36.0); MONO% 13.5 % (2-13); NEUT# 3.94 thou/uL (1.82-7.42); NEUT% 69.7 % (42-76); RED BLOOD COUNT 3.34 mill/uL (4.70-6.10); RED CELL DISTRI WIDTH 19.3 % (11.5-15.5)
[2023-08-28 13:38] LABS: ALBUMIN 3.9 g/dL (3.2-5.0); ALKALINE PHOSPHATASE 89 u/l (38-126); ANION GAP 15 (6-22 (CALC)); BUN 54 mg/dL (8-23); BUN/CREATININE RATIO 23 (12-20 (CALC)); CARBON DIOXIDE 23 mmol/l (22-30); CHLORIDE 102 mmol/l (95-108); CREATININE 2.4 mg/dL (0.7-1.3); ESTIMATED GFR 27 ML/MIN (>=90 (CALC)); POTASSIUM 4.2 mmol/l (3.5-5.1); SGOT/AST 29 u/l (19-48); SODIUM 135 mmol/l (137-146); TOTAL PROTEIN 7.5 g/dL (6.3-8.2)
[2023-08-28 13:39] LABS: BILIRUBIN, TOTAL 0.7 mg/dL (0.2-1.3)
[2023-08-28 14:12] LABS: INTERNATIONAL NORMALIZED RATIO 2.3 RATIO (0.7-1.3)
[2023-08-28 14:20] LABS: PROTHROMBIN TIME 21.6 SECONDS (9.0-12.5)
[2023-08-28] MEDS ORDERED: FUROSEMIDE 40 MG/4 ML SDV IV ONE (14:40)
[2023-08-28] MEDS ORDERED: ACETAMINOPHEN 325 MG/TAB PO PRN (16:15)
[2023-08-28] MEDS ORDERED: MAGNESIUM HYDROXIDE 30 ML UDC PO PRN (16:15)
[2023-08-28] MEDS ORDERED: INSULIN LISPRO 100 UNITS/ML ML SC SCH (17:00)
[2023-08-28] MEDS ORDERED: FUROSEMIDE 40 MG/4 ML SDV IV SCH (18:00)
--- NOTE | 2023-08-28 19:35 | NUR ---
PT ARRIVED TO [facility] NURSE TO NURSE REPORT RECEIVED AT BEDSIDE. NO DISTRESS NOTED ON EXAM. PT ABLE TO STAND ON SCALE WITH MAX ASSISTANCE. PT PLACED ON PUREWICK. VS WNL ON RA. BLE EDEMA SCABS SCATTERED. CALL LIGHT WITHIN REACH.
--- NOTE | 2023-08-28 19:59 | NUR ---
weight- 125.4kg temp-97.1 bp-148/64 resp-19 pulse-90 o2-63
[2023-08-29] VITALS (10 sets, daily range): BP systolic 142–161; BP diastolic 54–71
--- NOTE | 2023-08-29 | NUR ---
PT RESTING NO DISTRESS NOTED ON EXAM. CALL LIGHT WITHIN REACH. PLAN OF CARE ONGOING.
--- NOTE | 2023-08-29 04:00 | NUR ---
PT RESTING NO DISTRESS NOTED ON EXAM. CALL LIGHT WITHIN REACH. PLAN OF CARE ONGOING.
--- NOTE | 2023-08-29 04:54 | NUR ---
PT ASKING FOR PAIN MEDICATION AND REPOSITIONED.
[2023-08-29 05:07] LABS: BASO% 1.1 % (0-3); EOS% 2.4 % (0-8); HEMATOCRIT 35.2 % (39.0-50.0); IMMATURE GRANULOCYTES 0.7 % (0.0-5.0); LYMPH% 11.7 % (15-41); MEAN CELL VOLUME 109.7 fL CALC (80.0-100.0); MEAN CORPUSCULAR HGB 37.4 pG CALC (26.0-32.0); MEAN CORPUSCULAR HGB CONC 34.1 g/dL CAL (32.0-36.0); MONO% 14.2 % (2-13); NEUT# 3.84 thou/uL (1.82-7.42); NEUT% 69.9 % (42-76); RED BLOOD COUNT 3.21 mill/uL (4.70-6.10); RED CELL DISTRI WIDTH 19.4 % (11.5-15.5)
[2023-08-29 05:21] LABS: INTERNATIONAL NORMALIZED RATIO 2.2 RATIO (0.7-1.3)
[2023-08-29 05:22] LABS: ALBUMIN 3.4 g/dL (3.2-5.0); BILIRUBIN, TOTAL 0.7 mg/dL (0.2-1.3); POTASSIUM 3.6 mmol/l (3.5-5.1); TOTAL PROTEIN 6.4 g/dL (6.3-8.2)
[2023-08-29 05:41] LABS: MAGNESIUM 1.9 mg/dL (1.6-2.3)
[2023-08-29 05:53] LABS: PROTHROMBIN TIME 20.4 SECONDS (9.0-12.5)
--- NOTE | 2023-08-29 07:21 | NUR ---
BEDSIDE REPORT RECEIVED FROM OFF GOING NURSE. PATIENT AWAKE IN BED. C/O PAIN AND ASKING FOR STRONGER PAIN MED. PATIENT MADE AWARE THAT I WILL ASK MD THIS MORNING FOR NEW ORDER. RESPIRATIONS EVEN AND UNLABORED ON ROOM AIR. PURE WICK IN PLACE WITH CLEAR YELLOW URINE OUTPUT. NO FURTHER CONCERN VOICED. CALL LIGHT WITHIN REACH.
[2023-08-29] MEDS ORDERED: HYDROcodone 5 MG/Acetaminophen 325 MG/COMBO PO PRN (09:20)
--- NOTE | 2023-08-29 10:28 | NUR ---
CONTACTED DR FIGUEROA'S OFFICE IN REFERENCE TO A CARDIOLOGY CONSULT. I SPOKE WITH LUIS FERNANDO AT 1028 HRS.
--- NOTE | 2023-08-29 11:02 | NUR ---
MILK OF MAGNESIA GIVEN PATIETN STATES HE HAS NOT HAD A BOWEL MOVEMENT SINCE 08/25/23. PATIENT CURRENTLY UP TO [facility] ATTEMTPING TO HAVE A BM. DENIES PAIN OR DISCOMFORT AT THIS TIME. SAFETY MEASURES IN PLACE AND CALL LIGHT WITHIN REACH.
[2023-08-29] MEDS ORDERED: hydrALAZINE HCL 25 MG/TAB PO SCH (14:00)
--- NOTE | 2023-08-29 15:54 | NUR ---
PATIENT AWAKE RESTING IN BED AT THIS TIME. DENIES PAIN OR DISCOMFORT. NO CONCERNS VOICED AT THIS TIME. CALL LIGHT WITHIN REACH.
--- NOTE | 2023-08-29 17:21 | NUR ---
PATIENT ASSISTED TO BSC WITH BY 2 STAFF. PATIENT WEAK AND HAS GENERALIZED PAIN TO BLE. UNABLE TO HAVE BOWEL MOVEMENT AT THIS TIME. MEDICATED WITH MOM THIS AM. CALL LIGHT WITHIN REACH.
--- NOTE | 2023-08-29 17:23 | NUR ---
PATIENT OFFERED A SHOWER AND DECLINED. OFFERED A BED BATH AND ACCEPTED BUT REQUESTS IT FOR AFTER 7PM WHEN "PEOPLE WON'T BE IN AND OUT". ASSISTED BACK TO BED. CALL LIGHT WITHIN REACH
--- NOTE | 2023-08-29 19:04 | NUR ---
BEDSIDE REPORT GIVEN TO ONCOMING NURSE. PATIENT RESTING IN BED WITH EYES CLOSED. NO SIGNS OF DISTRESS NOTED. CALL LIGHT WITHIN REACH.
--- NOTE | 2023-08-29 20:46 | NUR ---
PT WAS SLEEPING WHEN NURSE ENTERED ROOM TO DO ASSESSMENT. PT REPORTS NO DISCOMFORT/PAIN. LUNGS CLEAR VS WNL ON RA. BLE RED SENSITIVE TRACE EDEMA. IV SITE FLUSHED WORKING PROPERLY SL. NIGHT MEDICATION PROVIDED. CALL LIGHT WITHIN REACH. PLAN OF CARE ONGOING.
[2023-08-30] VITALS (7 sets, daily range): BP systolic 133–151; BP diastolic 60–68
--- NOTE | 2023-08-30 | NUR ---
PT RESTING NO DISTRESS NOTED ON EXAM. BREATHING EVEN. CALL LIGHT WITHIN REACH. PLAN OF CARE ONGOING.
--- NOTE | 2023-08-30 04:30 | NUR ---
PT RESTING NO DISTRESS NOTED ON EXAM. CALL LIGHT WITHIN REACH. PLAN OF CARE ONGOING.
[2023-08-30 04:47] LABS: BASO% 0.3 % (0-3); EOS% 0.8 % (0-8); HEMOGLOBIN 12.9 g/dl (14.0-18.0); IMMATURE GRANULOCYTES 0.5 % (0.0-5.0); LYMPH% 7.8 % (15-41); MEAN CELL VOLUME 111.4 fL CALC (80.0-100.0); MEAN CORPUSCULAR HGB 37.8 pG CALC (26.0-32.0); MEAN CORPUSCULAR HGB CONC 33.9 g/dL CAL (32.0-36.0); MONO% 11.7 % (2-13); NEUT# 6.22 thou/uL (1.82-7.42); NEUT% 78.9 % (42-76); RED BLOOD COUNT 3.41 mill/uL (4.70-6.10); RED CELL DISTRI WIDTH 19.6 % (11.5-15.5)
[2023-08-30 04:58] LABS: ALBUMIN 3.5 g/dL (3.2-5.0); BILIRUBIN, TOTAL 0.9 mg/dL (0.2-1.3); CREATININE 1.6 mg/dL (0.7-1.3); POTASSIUM 3.9 mmol/l (3.5-5.1); TOTAL PROTEIN 6.7 g/dL (6.3-8.2)
[2023-08-30 05:00] LABS: INTERNATIONAL NORMALIZED RATIO 2.5 RATIO (0.7-1.3)
--- NOTE | 2023-08-30 07:00 | NUR ---
REPORT RECEIVED FROM AURELIARN
--- NOTE | 2023-08-30 09:25 | NUR ---
PT OOB RESTING IN RECLINER,A&O X3;ASSESSMENT COMPLETED;PT REPORTS GENERALIZED PAIN RATING 7/10 ON THE PAIN SCALE, PT MEDICATED WITH PRN LORTAB 5/325MG PO;RESPIRATIONS EVEN AND UNLABORED ON RA,CLEAR LUNG SOUNDS;ABDOMEN SOFT ON PALPATION AND ACTIVE IN ALL 4 QUADRANTS; PT REPORTED HAVING A BOWEL MOVEMENT LAST NIGHT 08/29/23 AND DECLINED PRN MOM AT THIS TIME;PUREWICK CATHETER IN PLACE DRAINING CLEAR/YELLOW URINE WITH EASE;WEAK PEDAL PULSES. CELLULITIS NOTED TO RLE, RED AND WARM TO TOUCH;TELE MONITORING IN PLACE;#20G TO RAC FLUSHED AND PATENT,SITE APPEARS HEALTHY;ACCUCHECK 136, NO COVERAGE NEEDED;PT DENIES ANY ADDITIONAL NEEDS AND IS ENCOURAGED TO CALL FOR ASSISTANCE IF NEEDED;CALL LIGHT IN REACH;FREQUENT ROUNDS MADE.
--- NOTE | 2023-08-30 11:14 | NUR ---
AT BEDSIDE DISCUSSING POC WITH PT.
--- NOTE | 2023-08-30 11:28 | NUR ---
PT OOB RESTING IN RECLINER;RESPIRATIONS EVEN AND UNLABORED ON RA;PT REPORTS RT SHOULDER PAIN, LIDOCAINE PATCH APPLIED PER ORDER;TELE MONITORING IN PLACE;IV SITE PATENT AND ABX STARTED AT THIS TIME PER ORDER;ACCUCHECK 197, PT COVERED WITH SLIDING SCALE INSULIN PER ORDER;FALL PRECAUTIONS REMAIN IN PLACE WITH CALL LIGHT IN REACH;FREQUENT ROUNDS MADE.
[2023-08-30] MEDS ORDERED: LIDOCAINE 4 % PATCH TD SCH (11:30)
--- NOTE | 2023-08-30 15:50 | NUR ---
PT OOB RESTING IN RECLINER VISITING WITH FAMILY;RESPIRATIONS EVEN AND UNLABORED ON RA;PT DENIES ANY CURRENT PAIN OR DISCOMFORTS;TELE MONITORING IN PLACE;IV SITE TO RAC PATENT;PUREWICK CATHETER REMAINS IN PLACE;PT ENCOURAGED TO CALL FOR ASSISTANCE IF NEEDED;CALL LIGHT IN REACH;FREQUENT ROUNDS MADE.
--- NOTE | 2023-08-30 20:00 | NUR ---
RECEIVED REPORT FROM NURSE NANCY, PATIENT RESTING IN BED, JUST GOT BACK IN THE BED, IV ON RAC G 20 PATENT AND FLUSHES WELL, HOOKED ON TELEMETRY AFIB 64, PATIENT HAS PUREWICK DRAINING YELLOW CLEAR URINE, DISTENDED SOFT ABDOMEN, DISCOLORATION NOTED ON BOTH LEGS, C/O PAIN ON RT SHOULDER AND RT LEG, PRN LORTAB GIVEN.
[2023-08-31] VITALS (8 sets, daily range): BP systolic 111–152; BP diastolic 54–69
--- NOTE | 2023-08-31 00:18 | NUR ---
PATIENT RESTING IN BED, NOT IN DSITRESS, LIDOCAINE PATCH REMOVED FROM RT SHOULDER PER APR, BREATHING UNLABORED CALL LIGHT IN REACHED.
--- NOTE | 2023-08-31 04:05 | NUR ---
PATINET RESTING IN BED, EYES CLSOED, BRAETHING UNLABORED, CALL LIGHT IN REACHED.
[2023-08-31 04:56] LABS: BASO% 0.5 % (0-3); EOS% 1.6 % (0-8); HEMATOCRIT 35.7 % (39.0-50.0); HEMOGLOBIN 12.1 g/dl (14.0-18.0); IMMATURE GRANULOCYTES 0.8 % (0.0-5.0); LYMPH% 10.1 % (15-41); MEAN CELL VOLUME 110.5 fL CALC (80.0-100.0); MEAN CORPUSCULAR HGB 37.5 pG CALC (26.0-32.0); MEAN CORPUSCULAR HGB CONC 33.9 g/dL CAL (32.0-36.0); MONO% 12.7 % (2-13); NEUT# 5.59 thou/uL (1.82-7.42); NEUT% 74.3 % (42-76); RED BLOOD COUNT 3.23 mill/uL (4.70-6.10); RED CELL DISTRI WIDTH 19.8 % (11.5-15.5)
[2023-08-31 05:01] LABS: ALBUMIN 3.8 g/dL (3.2-5.0); BILIRUBIN, TOTAL 1.1 mg/dL (0.2-1.3); CREATININE 1.6 mg/dL (0.7-1.3); MAGNESIUM 2.1 mg/dL (1.6-2.3); POTASSIUM 3.5 mmol/l (3.5-5.1); TOTAL PROTEIN 7.4 g/dL (6.3-8.2)
[2023-08-31] MEDS ORDERED: CLEOCIN300 MG PO (06:34)
--- NOTE | 2023-08-31 07:30 | NUR ---
REPORT RECEIVED FROM KRISTIN SPRING. PT SITTING UP IN CHAIR; ALERT AND ORIENTED X 3. C/O 6/10 PAIN TO RIGHT SHOULDER WITH LIMITED MOBILITY. DENIES SOB; RESPIRATIONS EVEN AND UNLABORED ON ROOM AIR; LUNGS CLEAR. IV SITE APPEARS HEALTHY AND FLUSHES. TELE ON. PLAN OF CARE REVIEWED. PT ENCOURAGED TO VERALIZE CONCERNS; STATES UNDERSTANDING. SAFETY MEASURES IN PLACE; CALL LIGHT WITHIN REACH.
[2023-08-31 07:31] LABS: INTERNATIONAL NORMALIZED RATIO 2.9 RATIO (0.7-1.3)
[2023-08-31 08:11] LABS: PROTHROMBIN TIME 26.6 SECONDS (9.0-12.5)
--- NOTE | 2023-08-31 09:00 | NUR ---
TRANSPORTED TO RADIOLOGY FOR RIGHT SHOULDER XRAY. 2 PERSON ASSIST TO WHEELCHAIR. TORADOL GIVEN AND LIDOCAINE PATCH APPLIED TO RIGHT SHOULDER.
[2023-08-31] MEDS ORDERED: KETOROLAC TROMETHAMINE 15 MG/ML SDV IV SCH (09:30)
--- NOTE | 2023-08-31 09:45 | NUR ---
RETURNED TO ROOM IN STABLE CONDITION VIA WHEELCHAIR WITH ACQUISITIONS EDITOR. REPSOITIONED INTO CHAIR WITH 2 PERSON ASSIST. RESTING WITH LEGS ELEVATED.
--- NOTE | 2023-08-31 12:30 | NUR ---
DAUGHTER AT BEDSIDE. ABT INFUSED WITHOUT DIFFICULTY. REPORTS 3/10 RIGHT SHOULDER PAIN; DECLINES MEDICATION AT THIS TIME. WARM PACKS APPLIED FOR COMFORT THROUGHOUT THE SHIFT. PURWIK CATHETER SUCTIONING CLEAR, YELLOW URINE IN ADEQUATE AMOUNTS. NO REQUESTS OR NEEDS AT THIS TIME. CALL LIGHT WITHIN REACH.
--- NOTE | 2023-08-31 16:00 | NUR ---
DENIES PAIN WHILE RESTING IN THE CHAIR. REMAINS IN AFIB ON TELEMETRY THROUGHOUT SHIFT. NO APPARENT CHANGES IN CONDITION. SAFETY MEASURES IN PLACE; CALL LIGHT WITHIN REACH.
--- NOTE | 2023-08-31 20:00 | NUR ---
RECEIVED REPORT FROM NURSE SHAHBAZ, PATIENT SITTING IN CHAIR, ALERT ORIENTED X 3, ABLE TO MAKE NEEDS KNOWN, PATIENT BREATHING UNLABORED ON ROOM AIR, PATIENT C/O PAIN ON RT SHOULDER LIDOCAINE PATCH IN PLACED, LIMITED RANGE ONF MOTION RT SHOULDER, WILL MEDICATE, IV RAC SALINE LOCK, PATENT FLUSHES WELL, ON TELEMTRY, ABDOMEN DISTENDED SOFT, LBM 7/20, LUNG SOUNDS CLEAR, +1 EDEMA ON BILAT ANKLE, DISCOLORATION ON BILAT LEGS NOTED, PATIENT ASSISTED TO GO BACK IN BED 2 PERSON ASSIST RT LEG ELEVATED, CALL LIGHT IN REACHED.
[2023-09-01] VITALS (7 sets, daily range): BP systolic 136–152; BP diastolic 58–73
--- NOTE | 2023-09-01 | NUR ---
JEWELS RSETING IN BED, WATCHING TV, BREATHING UNALBORED, NOPT IN DSITRESS, CALL LIGHT IN REACHED,
--- NOTE | 2023-09-01 03:50 | NUR ---
PATIENT RESTING IN BED, BREATHING EVEN UNLABORE, V/S OBTAINED, CALL LIGHT WITHIN REACHED.
[2023-09-01 04:51] LABS: BASO% 0.7 % (0-3); EOS% 2.1 % (0-8); HEMATOCRIT 32.7 % (39.0-50.0); HEMOGLOBIN 11.1 g/dl (14.0-18.0); IMMATURE GRANULOCYTES 0.9 % (0.0-5.0); LYMPH% 12.9 % (15-41); MEAN CELL VOLUME 108.6 fL CALC (80.0-100.0); MEAN CORPUSCULAR HGB 36.9 pG CALC (26.0-32.0); MEAN CORPUSCULAR HGB CONC 33.9 g/dL CAL (32.0-36.0); MONO% 13.5 % (2-13); NEUT# 4.66 thou/uL (1.82-7.42); NEUT% 69.9 % (42-76); RED BLOOD COUNT 3.01 mill/uL (4.70-6.10); RED CELL DISTRI WIDTH 19.3 % (11.5-15.5)
[2023-09-01 05:22] LABS: ALBUMIN 2.9 g/dL (3.2-5.0); BILIRUBIN, TOTAL 0.7 mg/dL (0.2-1.3); CREATININE 1.6 mg/dL (0.7-1.3); POTASSIUM 3.2 mmol/l (3.5-5.1); TOTAL PROTEIN 5.9 g/dL (6.3-8.2)
--- NOTE | 2023-09-01 05:26 | NUR ---
PATIENT REFUSED TO GET WEIGHED AT THIS TIME, STATED WILL DO IT LATER THIS MORNING WHEN HE IS READY TO GET UP AND GO TO THE CHAIR.
[2023-09-01 05:31] LABS: PROTHROMBIN TIME 27.2 SECONDS (9.0-12.5)
--- NOTE | 2023-09-01 08:02 | NUR ---
PATIENT A/O X3; ROOM AIR; BREATHING UNLABORED AND EVEN; DENIED ANY PAIN; DENID ANY N/D/V AT THIS TIME; IV SITE ON RAC SALINE LOCKED AND AND FLSUHED WITH NO ISSUES; TELE LEADS ARE ATTACHED AND WORKING WITH NO ISSUES; MALE PUR WICK ATTACHED AND WORKING WITH CLEAR YELLOW URIEN OUTPUT; MEDICATION REVIWED; GLUCOSE WAS 197, 1 UNIT GIVEN; CALL LIGHT WITHIN REACH,VERBALIZED UNDERSTANDING ON HOW TO USE, PERSONAL ITEMS WITHIN REACH, BED IN LOWEST POSTION
[2023-09-01] MEDS ORDERED: POTASSIUM CHLORIDE 20 MEQ/TAB PO SCH (08:30)
[2023-09-01] MEDS ORDERED: FUROSEMIDE 40 MG/TAB PO SCH (09:00)
--- NOTE | 2023-09-01 12:50 | NUR ---
PATIENT A/O X3; ROOM AIR; BREATHING UNLABORED AND EVEN; SITTING IN CHAIR NEXT TO BED; DENIED ANY PAIN; DENIED NEEDING ANYTHING; DENIED ANY N/V/S AT THIS TIME; PATIENT REFUSED TO WORK WITH PT THIS AM; MEDICATION REVIEWED; NO COMPLAINTS AT THIS TIME; NO S.S OF DISTRESS; CALL LIGHT WITHIN REACH,VERBALIZED UNDERSTANDING ON HOW TO USE, PEROSNAL ITEMS WITHIN REACH, BED IN LOWEST POSTION
--- NOTE | 2023-09-01 15:54 | NUR ---
patient a/o x3; room air; breathing unlabored and even; denied any pain; denied any n/d/v at this time; patient back in bed sitting semi watson; iv site clean and intact; tele leads are attached and working with no issues; no complaints at this time; medication reviwed; call light within reach,verbalized understanding on how to use, personal items within reach, bed in lowest postion
--- NOTE | 2023-09-01 19:48 | NUR ---
PATIENT IN BED AWAKE WATCHING TV. BED SIDE ASSESMENT COMPLETED EQUAL CHEST RISES, CLEAR LUNG SOUNDS. PATIENT IS ABLE TO MAKE NEEDS KNOWN, NONE NEEDED AT THIS TIME. BED AT LOWEST POSITION. CALL LIGHT WITH IN REACH.
--- NOTE | 2023-09-02 | NUR ---
patient in bed asleep. no distress noted. no signs of pain. bed in lowest position, call light with in reach.
[2023-09-02 00:06] VITALS: BP 141/63
[2023-09-02 03:51] VITALS: BP 153/69
--- NOTE | 2023-09-02 03:57 | NUR ---
patient in bed asleep. responds to verbal stimuli. patient can make needs known. bed at lowest position, call light within reach.
[2023-09-02 05:05] LABS: BASO% 0.5 % (0-3); EOS% 2.6 % (0-8); HEMATOCRIT 34.6 % (39.0-50.0); HEMOGLOBIN 11.7 g/dl (14.0-18.0); LYMPH% 11.1 % (15-41); MEAN CELL VOLUME 108.8 fL CALC (80.0-100.0); MEAN CORPUSCULAR HGB 36.8 pG CALC (26.0-32.0); MEAN CORPUSCULAR HGB CONC 33.8 g/dL CAL (32.0-36.0); MONO% 12.2 % (2-13); NEUT# 4.4 thou/uL (1.82-7.42); NEUT% 72.6 % (42-76); RED BLOOD COUNT 3.18 mill/uL (4.70-6.10)
[2023-09-02 05:17] LABS: BILIRUBIN, TOTAL 0.7 mg/dL (0.2-1.3); POTASSIUM 3.6 mmol/l (3.5-5.1); TOTAL PROTEIN 6.1 g/dL (6.3-8.2)
[2023-09-02 05:21] LABS: CREATININE 1.8 mg/dL (0.7-1.3)
[2023-09-02 06:51] VITALS: BP 150/64
--- NOTE | 2023-09-02 07:32 | NUR ---
Pt A&Ox3. Breathing unlabored and even on room air. IV in LAC clean and intact on SL. Purewick outputing clear yellow urine. Tele intact. Medication reviewed. Bed in lowest position. Call light within reach; educated pt on use, verbalized understanding. No needs at this time.
--- NOTE | 2023-09-02 08:18 | NUR ---
PHLEBOTOMY CAME TO PATIENTS ROOM TO GET BLOOD FOR BLOODWORK.
--- NOTE | 2023-09-02 08:20 | NUR ---
PT GLUCOSE 197; 1 UNIT OF INSULIN ADMINISTERED.
[2023-09-02] MEDS ORDERED: TOPROL XL25 MG PO (09:38)
[2023-09-02] MEDS ORDERED: LANTUS SOL100 UNIT/M SC (09:38)
[2023-09-02 10:30] LABS: PROTHROMBIN TIME 18.4 SECONDS (9.0-12.5)
[2023-09-02 10:39] VITALS: BP 144/68
--- NOTE | 2023-09-02 11:05 | NUR ---
PT GLUCOSE WAS 272; 3 UNITS OF INSULIN ADMINISTERED.
--- NOTE | 2023-09-02 11:26 | NUR ---
PT COMPLAINED OF HAVING AN ELECTRIC SHOCK PAIN IN HIS RIGHT KNEE. RATED PAIN A 4. STATED HE FELT PAIN REGARDLESS OF SITTING UPRIGHT OR LAYING SUPINE. RIGHT KNEE IS VISIBILY SWOLLEN AND SENSITIVE TO TOUCH. PT WAS GIVEN 1 TAB OF PRN ORDER OF HYDROCODONE 5MG/ACETAMINOPHEN 325MG PO. ASSISTED PT BACK TO BED VIA WALKER. RIGHT KNEE ELEVATED WITH PILLOWS. PERSONAL ITEMS WITHIN REACH. BED LOCKED AND IN LOWEST POSITION. CALL LIGHT IN REACH, PT VERBALIZED UNDERSTANDING.
--- NOTE | 2023-09-02 11:47 | NUR ---
REASSESSED PATIENTS PAIN LEVEL. DENIES ANY AT THIS TIME.
--- NOTE | 2023-09-02 12:24 | NUR ---
PATIENT A&OX3. RESTING IN BED WITH EYES CLOSED. BREATHING EVEN AND UNLABORED. DENIES ANY PAIN AT THIS TIME, WELL N/D/V. PERSONAL ITEMS WITHIN REACH. CALL LIGHT IN HAND; VERBALIZED UNDERSTANDING OF USE. BED IN LOWEST POSITION. NO NEEDS AT THIS TIME.
--- NOTE | 2023-09-02 13:23 | NUR ---
CALLED AND GAVE REPORT TO [facility]
--- NOTE | 2023-09-02 13:24 | NUR ---
IN REPORT ANSELMO FROM [facility] REQUESTED THAT PATIENT KEEPS 20G RAC IV SITE
--- NOTE | 2023-09-02 13:43 | NUR ---
Discharge instructions given. Patient verbalizes understanding of same. Discharged in stable condition via Wheelchair to [facility] with *Other. All belongings sent with pt. IV SITE STILL INTACT [facility] NURSE ANSELMO MAN
== END 2023-09-02 13:43 ==
LOC: ED 12:53 → ED-I 14:25 → ED 15:12 → MS2 15:13
PROVIDERS: Family Medicine; Nurse Practitioner Family; Student in an Organized Health Care Education/Training Program; ADMIT Internal Medicine; ATTEND Internal Medicine
DX: I13.0 Hypertensive heart and chronic kidney disease with heart failure and stage 1 through stage 4 chronic kidney disease, or unspecified chronic kidney disease (principal); I50.43 Acute on chronic combined systolic (congestive) and diastolic (congestive) heart failure; N17.9 Acute kidney failure, unspecified; N18.32 Chronic kidney disease, stage 3b; E11.22 Type 2 diabetes mellitus with diabetic chronic kidney disease; J44.9 Chronic obstructive pulmonary disease, unspecified; I25.10 Atherosclerotic heart disease of native coronary artery without angina pectoris; I48.19 Other persistent atrial fibrillation; L03.114 Cellulitis of left upper limb; M15.9 Polyosteoarthritis, unspecified; E11.65 Type 2 diabetes mellitus with hyperglycemia; D68.59 Other primary thrombophilia; I44.7 Left bundle-branch block, unspecified; I08.1 Rheumatic disorders of both mitral and tricuspid valves; E78.5 Hyperlipidemia, unspecified; E11.51 Type 2 diabetes mellitus with diabetic peripheral angiopathy without gangrene; M10.9 Gout, unspecified; Z95.3 Presence of xenogenic heart valve; Z79.01 Long term (current) use of anticoagulants; Z86.718 Personal history of other venous thrombosis and embolism; Z95.5 Presence of coronary angioplasty implant and graft; Z79.84 Long term (current) use of oral hypoglycemic drugs
CPT/HCPCS: J0878

== ENCOUNTER 2023-10-06 08:24 | Inpatient (IN) | payer MEDICARE, OTHER ==
[2023-10-06] VITALS (25 sets, daily range): BP systolic 86–162; BP diastolic 34–70
[~2023-10-06] VITALS: Ht 188 cm; Wt 117.6 kg
[~2023-10-06 08:24] MED LIST changes: +CLEOCIN300 MG PO; +LANTUS SOL100 UNIT/M SC; +TOPROL XL25 MG PO
[2023-10-06 08:52] LABS: BASO% 1.2 % (0-3); EOS% 2.7 % (0-8); HEMATOCRIT 35.8 % (39.0-50.0); HEMOGLOBIN 11.8 g/dl (14.0-18.0); LYMPH% 20.6 % (15-41); MEAN CELL VOLUME 110.2 fL CALC (80.0-100.0); MEAN CORPUSCULAR HGB 36.3 pG CALC (26.0-32.0); MONO% 9.7 % (2-13); NEUT# 2.67 thou/uL (1.82-7.42); NEUT% 64.8 % (42-76); RED BLOOD COUNT 3.25 mill/uL (4.70-6.10); RED CELL DISTRI WIDTH 20.5 % (11.5-15.5)
[2023-10-06] MEDS ORDERED: TRESIBA FL100 UNIT/M SC (09:20)
[2023-10-06] MEDS ORDERED: TAMSULOSIN0.4 MG PO (09:34)
[2023-10-06 09:35] LABS: ALBUMIN 3.3 g/dL (3.2-5.0); BILIRUBIN, TOTAL 0.7 mg/dL (0.2-1.3); CREATININE 1.7 mg/dL (0.7-1.3); POTASSIUM 3.8 mmol/l (3.5-5.1); TOTAL PROTEIN 6.5 g/dL (6.3-8.2)
[2023-10-06] MEDS ORDERED: AZITHROMYCIN 500 MG in SODIUM CHLORIDE 0.9% 250 ML IV ONE (09:35)
[2023-10-06] MEDS ORDERED: cefTRIAXone SODIUM 2 GM in SODIUM CHLORIDE 0.9% 100 ML IV ONE (09:35)
[2023-10-06 09:40] LABS: INTERNATIONAL NORMALIZED RATIO 2.3 RATIO (0.7-1.3)
[2023-10-06 09:43] LABS: PROTHROMBIN TIME 21.2 SECONDS (9.0-12.5)
[2023-10-06] MEDS ORDERED: ALLOPURINOL200 MG PO (09:44)
[2023-10-06] MEDS ORDERED: ROPINIROLE0.5 MG PO (09:55)
[2023-10-06] MEDS ORDERED: PLAVIX75 MG PO (09:56)
[2023-10-06] MEDS ORDERED: AMLODIPINE BESYL5 MG PO (09:57)
[2023-10-06] MEDS ORDERED: FUROSEMIDE 40 MG/4 ML SDV IV ONE (12:00)
[2023-10-06] MEDS ORDERED: ACETAMINOPHEN 325 MG/TAB PO PRN (12:20)
[2023-10-06] MEDS ORDERED: MAGNESIUM HYDROXIDE 30 ML UDC PO PRN (12:20)
[2023-10-06] MEDS ORDERED: DEXTROSE 250 ML IV PRN (14:00)
[2023-10-06] MEDS ORDERED: FUROSEMIDE 40 MG/4 ML SDV IV SCH (17:00)
[2023-10-06] MEDS ORDERED: INSULIN LISPRO 100 UNITS/ML ML SC SCH (17:00)
[2023-10-06] MEDS ORDERED: ALPRAZolam 0.25 MG PO PRN (20:05)
[2023-10-06] MEDS ORDERED: ALBUTEROL SULFATE 2.5 MG VIAL NEB PRN (20:05)
[2023-10-06] MEDS ORDERED: amLODIPine BESYLATE 5 MG/TAB PO SCH (21:00)
[2023-10-06] MEDS ORDERED: rOPINIRole Hydrochloride 0.5 MG/TAB PO SCH (21:00)
[2023-10-07] VITALS (11 sets, daily range): BP systolic 136–162; BP diastolic 36–63
[2023-10-07 05:38] LABS: INTERNATIONAL NORMALIZED RATIO 2.2 RATIO (0.7-1.3)
[2023-10-07 05:43] LABS: ALBUMIN 2.8 g/dL (3.2-5.0); BILIRUBIN, TOTAL 0.9 mg/dL (0.2-1.3); CREATININE 1.2 mg/dL (0.7-1.3); POTASSIUM 3.4 mmol/l (3.5-5.1); TOTAL PROTEIN 5.7 g/dL (6.3-8.2)
[2023-10-07 05:44] LABS: BASO% 1.5 % (0-3); EOS% 1.3 % (0-8); HEMOGLOBIN 10.7 g/dl (14.0-18.0); IMMATURE GRANULOCYTES 0.8 % (0.0-5.0); LYMPH% 25.3 % (15-41); MEAN CELL VOLUME 111.5 fL CALC (80.0-100.0); MEAN CORPUSCULAR HGB 36.1 pG CALC (26.0-32.0); MEAN CORPUSCULAR HGB CONC 32.4 g/dL CAL (32.0-36.0); MONO% 10.6 % (2-13); NEUT# 2.4 thou/uL (1.82-7.42); NEUT% 60.5 % (42-76); RED BLOOD COUNT 2.96 mill/uL (4.70-6.10); RED CELL DISTRI WIDTH 20.4 % (11.5-15.5)
[2023-10-07 05:45] LABS: MAGNESIUM 1.2 mg/dL (1.6-2.3)
[2023-10-07] MEDS ORDERED: CLOPIDOGREL BISULFATE 75 MG/TAB TAB PO SCH (09:00)
[2023-10-07] MEDS ORDERED: ALLOPURINOL 100 MG/TAB PO SCH (09:00)
[2023-10-07] MEDS ORDERED: methylPREDNISolone Sod Succ 40 MG/ML SDV IV SCH (09:00)
[2023-10-07] MEDS ORDERED: MAGNESIUM SULFATE HEPTAHYDRATE 100 ML IV SCH (09:00)
[2023-10-07] MEDS ORDERED: POTASSIUM CHLORIDE 20 MEQ/TAB PO SCH (09:00)
[2023-10-07] MEDS ORDERED: INSULIN DETEMIR 100 UNITS/ML SC SCH (09:00)
[2023-10-07] MEDS ORDERED: METOPROLOL SUCCINATE 25 MG/TAB-TOPROL XL PO SCH (09:00)
[2023-10-07] MEDS ORDERED: TAMSULOSIN HCL 0.4 MG CAP PO SCH (09:00)
[2023-10-07] MEDS ORDERED: AZITHROMYCIN 500 MG in SODIUM CHLORIDE 0.9% 250 ML IV SCH (10:00)
[2023-10-07] MEDS ORDERED: PANTOPRAZOLE SODIUM Sesquihydr 40 MG/TAB PO SCH (13:00)
[2023-10-08 04:21] VITALS: BP 138/65
[2023-10-08 04:35] VITALS: BP 138/65
[2023-10-08 05:04] LABS: BASO% 0.5 % (0-3); HEMOGLOBIN 10.9 g/dl (14.0-18.0); IMMATURE GRANULOCYTES 0.7 % (0.0-5.0); LYMPH% 12.7 % (15-41); MEAN CORPUSCULAR HGB 36.3 pG CALC (26.0-32.0); MONO% 6.9 % (2-13); NEUT# 3.43 thou/uL (1.82-7.42); NEUT% 79.2 % (42-76)
[2023-10-08 05:35] LABS: BILIRUBIN, TOTAL 0.7 mg/dL (0.2-1.3); CREATININE 1.4 mg/dL (0.7-1.3); TOTAL PROTEIN 5.9 g/dL (6.3-8.2)
[2023-10-08 05:41] LABS: MAGNESIUM 2.1 mg/dL (1.6-2.3); POTASSIUM 4.2 mmol/l (3.5-5.1)
[2023-10-08 07:10] VITALS: BP 151/65
[2023-10-08] MEDS ORDERED: FUROSEMIDE 40 MG/4 ML SDV IV SCH (09:00)
[2023-10-08 10:15] VITALS: BP 146/69
[2023-10-08] MEDS ORDERED: ZPAK PO (10:29)
== END 2023-10-08 13:54 | disposition home health service (06) | DRG 193 ==
LOC: ED 08:24 → ED-I 11:52 → ED 12:12 → MS2 12:19
PROVIDERS: Family Medicine; Nurse Practitioner Family; ADMIT Internal Medicine; ATTEND Internal Medicine
DX: J18.9 Pneumonia, unspecified organism (principal); I50.23 Acute on chronic systolic (congestive) heart failure; J96.01 Acute respiratory failure with hypoxia; I13.0 Hypertensive heart and chronic kidney disease with heart failure and stage 1 through stage 4 chronic kidney disease, or unspecified chronic kidney disease; I48.19 Other persistent atrial fibrillation; J44.0 Chronic obstructive pulmonary disease with (acute) lower respiratory infection; D68.59 Other primary thrombophilia; E11.22 Type 2 diabetes mellitus with diabetic chronic kidney disease; N18.31 Chronic kidney disease, stage 3a; E11.51 Type 2 diabetes mellitus with diabetic peripheral angiopathy without gangrene; I25.10 Atherosclerotic heart disease of native coronary artery without angina pectoris; I27.20 Pulmonary hypertension, unspecified; I05.0 Rheumatic mitral stenosis; M10.9 Gout, unspecified; Z95.3 Presence of xenogenic heart valve; Z79.4 Long term (current) use of insulin; Z95.5 Presence of coronary angioplasty implant and graft; Z86.718 Personal history of other venous thrombosis and embolism; Z79.01 Long term (current) use of anticoagulants; Z87.11 Personal history of peptic ulcer disease; Z20.822 Contact with and (suspected) exposure to COVID-19
CPT/HCPCS: J3475; Q9967

== ENCOUNTER 2023-11-05 08:10 | Inpatient (IN) | payer MEDICARE, OTHER ==
[~2023-11-05] VITALS: Ht 188 cm; Wt 129.2 kg
[2023-11-05] VITALS (60 sets, daily range): BP systolic 82–198; BP diastolic 39–166
[~2023-11-05 08:10] MED LIST changes: +ALLOPURINOL200 MG PO; +AMLODIPINE BESYL5 MG PO; +PLAVIX75 MG PO; +ROPINIROLE0.5 MG PO; +TAMSULOSIN0.4 MG PO; +TRESIBA FL100 UNIT/M SC; +ZPAK PO
[2023-11-05 08:41] LABS: BASO% 0.7 % (0-3); HEMATOCRIT 33.4 % (39.0-50.0); HEMOGLOBIN 10.9 g/dl (14.0-18.0); IMMATURE GRANULOCYTES 1.1 % (0.0-5.0); LYMPH% 7.6 % (15-41); MEAN CELL VOLUME 114.8 fL CALC (80.0-100.0); MEAN CORPUSCULAR HGB 37.5 pG CALC (26.0-32.0); MEAN CORPUSCULAR HGB CONC 32.6 g/dL CAL (32.0-36.0); MONO% 5.2 % (2-13); NEUT# 4.73 thou/uL (1.82-7.42); NEUT% 85.4 % (42-76); RED BLOOD COUNT 2.91 mill/uL (4.70-6.10); RED CELL DISTRI WIDTH 20.7 % (11.5-15.5)
[2023-11-05 09:05] LABS: ACT PARTIAL THROMBO TIME 22.7 SECONDS (20.0-32.5)
[2023-11-05 09:07] LABS: INTERNATIONAL NORMALIZED RATIO 1.3 RATIO (0.7-1.3); PROTHROMBIN TIME 12.2 SECONDS (9.0-12.5)
[2023-11-05 09:12] LABS: BILIRUBIN, TOTAL 0.8 mg/dL (0.2-1.3); CREATININE 1.5 mg/dL (0.7-1.3); POTASSIUM 4.6 mmol/l (3.5-5.1)
[2023-11-05 09:28] LABS: ALBUMIN 3.9 g/dL (3.2-5.0); TOTAL PROTEIN 7.1 g/dL (6.3-8.2)
[2023-11-05] MEDS ORDERED: IPRATROPIUM-Albuterol 0.5MG-2.5MG/3 ML NEB ONE (09:45)
[2023-11-05] MEDS ORDERED: ASPIRIN 81 MG/TAB PO ONE ×2 (09:45→09:55)
[2023-11-05] MEDS ORDERED: FUROSEMIDE 40 MG/4 ML SDV IV ONE (10:20)
[2023-11-05 10:27] LABS: URINE BILIRUBIN - DIPSTICK Negative (NEGATIVE); URINE BLOOD DIPSTICK Negative (NEGATIVE); URINE COLOR Yellow; URINE GLUCOSE - DIPSTICK >=1000 mg/dL (NEGATIVE); URINE KETONE Trace mg/dL (NEGATIVE); URINE LEUK ESTERASE Negative (NEGATIVE); URINE NITRITE - DIPSTICK Negative (Negative); URINE PROTEIN - DIPSTICK Negative (NEG-TRACE); URINE UROBILINOGEN - DIPSTICK 0.2 E.U./dL (0.2)
[2023-11-05] MEDS ORDERED: DEXTROSE 250 ML IV PRN ×3 (12:50→12:55)
[2023-11-05] MEDS ORDERED: HYDRALAZINE HYD25 MG PO (13:27)
[2023-11-05] MEDS ORDERED: CHLORTHALIDONE25 MG PO (13:27)
[2023-11-05] MEDS ORDERED: OZEMPIC 8 MG/3M1 INJ SC (13:28)
[2023-11-05] MEDS ORDERED: FUROSEMIDE 40 MG/4 ML SDV IV SCH (14:00)
[2023-11-05] MEDS ORDERED: JARDIANCE25 MG PO (14:56)
[2023-11-05] MEDS ORDERED: INSULIN LISPRO 100 UNITS/ML ML SC SCH (17:00)
[2023-11-05] MEDS ORDERED: ATORVASTATIN CALCIUM 40 MG/TAB PO SCH (21:00)
[2023-11-05] MEDS ORDERED: rOPINIRole Hydrochloride 0.5 MG/TAB PO SCH (21:00)
[2023-11-05] MEDS ORDERED: LORazepam 2 MG/ML IV SCH (22:55)
[2023-11-06] VITALS (73 sets, daily range): BP systolic 97–170; BP diastolic 32–112
[2023-11-06 05:46] LABS: HEMATOCRIT 37.9 % (39.0-50.0); HEMOGLOBIN 12.2 g/dl (14.0-18.0); MEAN CELL VOLUME 116.3 fL CALC (80.0-100.0); MEAN CORPUSCULAR HGB 37.4 pG CALC (26.0-32.0); MEAN CORPUSCULAR HGB CONC 32.2 g/dL CAL (32.0-36.0); RED BLOOD COUNT 3.26 mill/uL (4.70-6.10); RED CELL DISTRI WIDTH 20.8 % (11.5-15.5)
[2023-11-06 05:54] LABS: ALBUMIN 3.6 g/dL (3.2-5.0); BILIRUBIN, TOTAL 0.8 mg/dL (0.2-1.3); CREATININE 1.5 mg/dL (0.7-1.3); POTASSIUM 4.9 mmol/l (3.5-5.1); TOTAL PROTEIN 6.7 g/dL (6.3-8.2)
[2023-11-06 08:30] LABS: INTERNATIONAL NORMALIZED RATIO 1.5 RATIO (0.7-1.3)
[2023-11-06 09:00] LABS: PROTHROMBIN TIME 13.7 SECONDS (9.0-12.5)
[2023-11-06] MEDS ORDERED: TAMSULOSIN HCL 0.4 MG CAP PO SCH (09:00)
[2023-11-06] MEDS ORDERED: CLOPIDOGREL BISULFATE 75 MG/TAB TAB PO SCH (09:00)
[2023-11-06] MEDS ORDERED: INSULIN DETEMIR 100 UNITS/ML SC SCH (09:00)
[2023-11-06] MEDS ORDERED: METOPROLOL SUCCINATE 25 MG/TAB-TOPROL XL PO SCH (09:00)
[2023-11-06] MEDS ORDERED: PANTOPRAZOLE SODIUM Sesquihydr 40 MG/TAB PO SCH (09:00)
[2023-11-06] MEDS ORDERED: ASPIRIN 81 MG/TAB PO SCH (09:00)
[2023-11-06] MEDS ORDERED: ENOXAPARIN SODIUM 30 MG/0.3 ML INJ SC SCH (10:00)
[2023-11-06] MEDS ORDERED: ENOXAPARIN SODIUM 100 MG/ML SYR SC SCH (10:00)
[2023-11-06] MEDS ORDERED: methylPREDNISolone Sod Succ 40 MG/ML SDV IV SCH (16:00)
[2023-11-06] MEDS ORDERED: PROPOFOL 100 ML IV ONE (16:20)
[2023-11-06] MEDS ORDERED: SODIUM CHLORIDE 0.9% 500 ML IV PRN (16:45)
[2023-11-06] MEDS ORDERED: NOREPINEPHRINE BITARTRATE 4 MG in SODIUM CHLORIDE 0.9% 250 ML IV PRN (16:45)
[2023-11-06] MEDS ORDERED: NOREPINEPHRINE BITARTRATE 4 MG in DEXTROSE 5% 250 ML IV ONE (16:50)
[2023-11-06] MEDS ORDERED: SODIUM CHLORIDE 0.9% 500 ML IV ONE (16:50)
[2023-11-06] MEDS ORDERED: PROPOFOL 100 ML IV PRN (17:00)
[2023-11-06] MEDS ORDERED: ETOMIDATE 20 MG/10 ML SDV IV ONE (17:01)
[2023-11-06] MEDS ORDERED: ROCURONIUM BROMIDE 10 MG/ML 5ML VIAL IV ONE (17:01)
[2023-11-06] MEDS ORDERED: PIPERACILLIN Sodium-Tazobactam 3.375 GM in SODIUM CHLORIDE 0.9% 100 ML IV SCH (18:00)
== END 2023-11-06 19:55 | disposition short-term general hospital (02) | DRG 64 ==
LOC: ED 08:10 → ED-I 10:07 → ED 10:36 → ED-I 10:37 → ICU 19:57
PROVIDERS: Emergency Medicine; ADMIT Internal Medicine; ATTEND Internal Medicine
PROC: 0T9B70Z Drainage of Bladder with Drainage Device, Via Natural or Artificial Opening (ICD-10-PCS; principal; 2023-11-05)
PROC: 5A0935A Assistance with Respiratory Ventilation, Less than 24 Consecutive Hours, High Flow/Velocity Cannula (ICD-10-PCS; 2023-11-05)
PROC: 5A09357 Assistance with Respiratory Ventilation, Less than 24 Consecutive Hours, Continuous Positive Airway Pressure (ICD-10-PCS; 2023-11-06)
PROC: 0BH17EZ Insertion of Endotracheal Airway into Trachea, Via Natural or Artificial Opening (ICD-10-PCS; 2023-11-06)
PROC: 5A1935Z Respiratory Ventilation, Less than 24 Consecutive Hours (ICD-10-PCS; 2023-11-06)
PROC: 02HV33Z Insertion of Infusion Device into Superior Vena Cava, Percutaneous Approach (ICD-10-PCS; 2023-11-06)
DX: I63.9 Cerebral infarction, unspecified (principal); G93.41 Metabolic encephalopathy; I50.43 Acute on chronic combined systolic (congestive) and diastolic (congestive) heart failure; J96.21 Acute and chronic respiratory failure with hypoxia; D68.59 Other primary thrombophilia; I13.0 Hypertensive heart and chronic kidney disease with heart failure and stage 1 through stage 4 chronic kidney disease, or unspecified chronic kidney disease; I48.19 Other persistent atrial fibrillation; E87.4 Mixed disorder of acid-base balance; R47.01 Aphasia; R29.712 NIHSS score 12; E11.22 Type 2 diabetes mellitus with diabetic chronic kidney disease; N18.9 Chronic kidney disease, unspecified; I25.10 Atherosclerotic heart disease of native coronary artery without angina pectoris; I48.91 Unspecified atrial fibrillation; E11.51 Type 2 diabetes mellitus with diabetic peripheral angiopathy without gangrene; I27.20 Pulmonary hypertension, unspecified; I05.0 Rheumatic mitral stenosis; M10.9 Gout, unspecified; J43.9 Emphysema, unspecified; I44.7 Left bundle-branch block, unspecified; E78.5 Hyperlipidemia, unspecified; Z86.718 Personal history of other venous thrombosis and embolism; Z79.02 Long term (current) use of antithrombotics/antiplatelets; Z79.85 Long-term (current) use of injectable non-insulin antidiabetic drugs; Z95.3 Presence of xenogenic heart valve; Z79.01 Long term (current) use of anticoagulants; Z79.4 Long term (current) use of insulin; Z87.11 Personal history of peptic ulcer disease
CPT/HCPCS: J1650; J2060; Q9967